=== PATIENT | female | born 1990 | race Caucasian/White ===

== ENCOUNTER 2020-08-07 08:50 | Emergency (ER) | payer OTHER ==
[2020-08-07 09:51] LABS: Urine Blood 1+ (NEG); Urine Glucose NEGATIVE (NEG); Urine Protein NEGATIVE (NEG)
[2020-08-07 09:57] LABS: Urine Bacteria 20-50 /HPF (<20); Urine RBC <5 /HPF (NONE SEEN); Urine Yeast FEW (NONE SEEN)
[2020-08-07 10:03] LABS: Basophils % 0.4 % (0-1.3); Lymphocytes % 15.2 % (15.3-44.8); MPV 7.6 fL (7.6-11.3); RBC Red Blood Cell Count 4.42 M/uL (3.86-4.86)
[2020-08-07 10:22] LABS: Albumin 3.5 g/dL (3.4-5.0); Bilirubin Direct 0.1 mg/dL (0-0.2); Bilirubin Total 0.3 mg/dL (0.2-1.0); Protein, Total 7.1 g/dL (6.4-8.2)
[2020-08-07] MEDS ORDERED: METHYLPREDNISOLONE 125 MG INJ ONE (10:36)
[2020-08-07] MEDS ORDERED: DIPHENHYDRAMINE 50 MG/ML VIAL ONE (10:36)
[2020-08-07] MEDS ORDERED: FAMOTIDINE 20 MG/2 ML VIAL IV ONE (10:37)
--- NOTE | 2020-08-07 11:27 | RAD REPORT ---
EXAM DESCRIPTION: CT - Abdomen Pelvis W Contrast - 08/07/2020 10:45 am CLINICAL HISTORY: Abdominal pain COMPARISON: none. TECHNIQUE: Computed axial tomography of the abdomen pelvis was obtained. 100 cc Isovue-300 was admin istered intravenously. Oral contrast was not requested which limits evaluation of bowel and appendix. All CT scans are performed using dose optimization technique as appropriate and may include automated exposure control or mA/KV adjustment according to patient size. FINDINGS: The liver, spleen, pancreas, adrenal and kidneys appear unremarkable. There is no evidence of diverticulitis. No adnexal mass IMPRESSION: No acute abnormality is displayed.
[2020-08-07 11:30] LABS: SARS-COV-2 RT PCR NEGATIVE (NEGATIVE)
[2020-08-07] MEDS ORDERED: DICYCLOMINE HCL 10 MG CAP ONE (12:24)
--- NOTE | 2020-08-07 12:24 | ER ---
Nurse's Notes [facility] Name: Megan Arias Age: 30 yrs Sex: Female : 1990 Arrival Date: 08/07/2020 Time: 08:53 Bed 14 Private MD: Diagnosis: Unspecified abdominal pain Presentation: 08/07 09:25 Chief complaint: Patient states: mid abd pain and bloating since Tuesday , also having iw chills, fatigue, loss appetite, taste changes, fever last night. Coronavirus screen: At this time, the client does not indicate any symptoms associated with coronavirus-19. Ebola Screen: Patient negative for fever greater than or equal to 101.5 degrees Fahrenheit, and additional compatible Ebola Virus Disease symptoms Patient denies exposure to infectious person. Patient denies travel to an Ebola-affected area in the 21 days before illness onset. No symptoms or risks identified at this time. Initial Sepsis Screen: Does the patient meet any 2 criteria? No. Patient's initial sepsis screen is negative. Does the patient have a suspected source of infection? No. Patient's initial sepsis screen is negative. Risk Assessment: Do you want to hurt yourself or someone else? Patient reports no desire to harm self or others. Onset of symptoms was August 03, 2020. 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 - Social history:: Smoking status: . Screenin: Abuse screen: Denies threats or abuse. Denies injuries from another. Nutritional iw screening: No deficits noted. Tuberculosis screening: No symptoms or risk factors identified. Fall Risk None identified. Assessment: : General: Appears in no apparent distress. Behavior is calm, cooperative. Pain: iw Complains of pain in abdomen. Neuro: Level of Consciousness is awake, alert, obeys commands, Oriented to person, place, time, situation, Moves all extremities. Full function. Cardiovascular: Patient's skin is warm and dry. Respiratory: Respiratory effort is even, unlabored, Respiratory pattern is regular. GI: Bowel sounds present X 4 quads. Abd is soft X 4 quads Reports upper abdominal pain, bloating. Derm: Skin is intact, is healthy with good turgor. Musculoskeletal: Range of motion: intact in all extremities. 10:15 Reassessment: will pre-medicate due to possible allergic reaction, pt has hx of allergy iw to Betadine. Vital Signs: 09:25 BP 119 / 83; Pulse 99; Resp 16; Pulse Ox 98% on R/A; Weight 83.91 kg; Height 5 ft. 4 iw in. (162.56 cm); 09:25 Body Mass Index 31.75 (83.91 kg, 162.56 cm) iw ED Course: 08:53 Patient arrived in ED. ag5 09:15 Han Barrera PA is PHCP. cp 09:15 Adebayo Salter MD is Attending Physician. cp 09:25 Inez Vieyra RN is Primary Nurse. iw 09:27 Triage completed. iw 09:28 Arm band placed on. iw 10:16 Inserted saline lock: 20 gauge in left antecubital area, using aseptic technique. iw 10:46 CT Abd/Pelvis - IV Contrast Only In Process Unspecified. EDMS 13:06 No provider procedures requiring assistance completed. IV discontinued, intact, iw bleeding controlled, No redness/swelling at site. Administered Medications: 10:32 Drug: Pepcid 20 mg Route: IVP; Site: left antecubital; iw 10:32 Drug: SOLU-Medrol 125 mg Route: IVP; Site: left antecubital; iw 10:33 Drug: Benadryl 25 mg Route: IVP; Site: left antecubital; iw 12:21 Drug: Bentyl 20 mg Route: PO; iw Outcome: 12:24 Discharge ordered by . cp 13:07 Patient left the ED. iw Signatures: Dispatcher [employer] EDMS Inez Vieyra RN RN iw Han Barrera PA PA cp Gaskin, Ajare ag5
--- NOTE | 2020-08-07 12:24 | EDPHYS ---
Physician Documentation [facility] Name: Megan Arias Age: 30 yrs Sex: Female : 1990 Arrival Date: 08/07/2020 Time: 08:53 Bed 14 Private MD: ED Physician Adebayo Salter HPI: 08/07 09:40 This 30 yrs old Female presents to ER via Ambulatory with complaints of cp Abdominal Pain, R/O COVID. 09:40 The patient presents with abdominal pain in the periumbilical area. cp 09:40 Onset: The symptoms/episode began/occurred 4 day(s) ago. cp 09:40 The symptoms do not radiate. Associated signs and symptoms: Pertinent positives: cp anorexia, constipation, fever, nausea, Pertinent negatives: diarrhea, dysuria, shortness of breath, vaginal discharge, vomiting. 09:40 The symptoms are described as waxing/waning. 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 - Social history:: Smoking status: . ROS: 09:45 Constitutional: Negative for body aches, chills, fever, poor PO intake. cp 09:45 Eyes: Negative for injury, pain, redness, and discharge. cp 09:45 ENT: Negative for ear pain, sore throat, difficulty swallowing, difficulty handling secretions. 09:45 Cardiovascular: Negative for chest pain, palpitations. 09:45 Respiratory: Negative for cough, shortness of breath, wheezing. 09:45 Abdomen/GI: Positive for abdominal pain, nausea, constipation, of the umbilical area, Negative for vomiting, diarrhea. 09:45 Back: Negative for radiated pain. 09:45 : Negative for urinary symptoms. 09:45 Neuro: Negative for altered mental status, headache, weakness. 09:45 All other systems are negative. Exam: 09:50 Constitutional: The patient appears in no acute distress, alert, awake, non-toxic, well cp developed, well nourished. 09:50 Head/Face: Normocephalic, atraumatic. cp 09:50 Eyes: Periorbital structures: appear normal, Conjunctiva: normal, no exudate, no injection, Sclera: no appreciated abnormality, Lids and lashes: appear normal, bilaterally. 09:50 ENT: External ear(s): are unremarkable, Nose: is normal, Mouth: Lips: moist, Oral mucosa: moist, Posterior pharynx: is normal, airway is patent, no erythema, no exudate. 09:50 Chest/axilla: Inspection: normal, Palpation: is normal, no crepitus, no tenderness. 09:50 Cardiovascular: Rate: normal, Rhythm: regular. 09:50 Respiratory: the patient does not display signs of respiratory distress, Respirations: normal, no use of accessory muscles, no retractions, labored breathing, is not present, Breath sounds: are clear throughout, no decreased breath sounds, no stridor, no wheezing. 09:50 Abdomen/GI: Inspection: abdomen appears normal, Bowel sounds: active, all quadrants, Palpation: soft, in all quadrants, moderate abdominal tenderness, in the umbilical area, rebound tenderness, is not appreciated, involuntary guarding, is not appreciated. 09:50 Back: pain, is absent, ROM is normal. Vital Signs: 09:25 BP 119 / 83; Pulse 99; Resp 16; Pulse Ox 98% on R/A; Weight 83.91 kg; Height 5 ft. 4 iw in. (162.56 cm); 09:25 Body Mass Index 31.75 (83.91 kg, 162.56 cm) iw MDM: 09:35 Patient medically screened. cp 10:00 Differential diagnosis: appendicitis, cholecystitis, Cholelithiasis, gastritis, cp non-specific abd pain, pancreatitis, Ureterolithiasis, urinary tract infection. 12:23 Data reviewed: vital signs, nurses notes, lab test result(s), radiologic studies, CT cp scan. 12:23 Counseling: I had a detailed discussion with the patient and/or guardian regarding: the cp historical points, exam findings, and any diagnostic results supporting the discharge/admit diagnosis, lab results, radiology results, to return to the emergency department if symptoms worsen or persist or if there are any questions or concerns that arise at home. Response to treatment: the patient's symptoms have markedly improved after treatment, VSS. Nausea and abdominal pain improved. Will discharge to home for continued monitoring. 08/07 09:33 Order name: Basic Metabolic Panel 08/07 09:33 Order name: CBC with Diff 08/07 09:33 Order name: Hepatic Function 08/07 09:33 Order name: Lipase 08/07 09:33 Order name: Urine Microscopic Only; Complete Time: 10:09 08/07 09:34 Order name: Basic Metabolic Panel; Complete Time: 11:34 [facility] 08/07 11:34 Interpretation: Normal except: GFR 84. 08/07 09:34 Order name: CBC with Automated Diff; Complete Time: 10:09 [facility] 08/07 09:34 Order name: Liver (Hepatic) Function; Complete Time: 11:34 [facility] 08/07 11:34 Interpretation: Normal except: AST 14; GLOB 3.6; A/G 1.0. 08/07 09:34 Order name: Lipase; Complete Time: 11:34 [facility] 08/07 09:42 Order name: Urine Dipstick--Ancillary (enter results); Complete Time: 10:09 [facility] 08/07 09:42 Order name: Urine --Ancillary (enter results); Complete Time: 10:09 [facility] 08/07 09:58 Order name: Urine Culture [facility] 08/07 09:33 Order name: IV Saline Lock; Complete Time: 10:33 08/07 09:33 Order name: Labs collected and sent; Complete Time: 10:00 08/07 09:33 Order name: Urine Dipstick-Ancillary (obtain specimen); Complete Time: 09:41 08/07 09:33 Order name: Urine Test (obtain specimen); Complete Time: 09:41 08/07 09:33 Order name: CT Abd/Pelvis - IV Contrast Only; Complete Time: 11:34 08/07 11:34 Interpretation: Report reviewed. 08/07 11:30 Order name: COVID-19/FLU A+B; Complete Time: 11:34 [facility] 08/07 11:35 Order name: PO challenge; Complete Time: 12:05 cp Administered Medications: 10:32 Drug: Pepcid 20 mg Route: IVP; Site: left antecubital; iw 10:32 Drug: SOLU-Medrol 125 mg Route: IVP; Site: left antecubital; iw 10:33 Drug: Benadryl 25 mg Route: IVP; Site: left antecubital; iw 12:21 Drug: Bentyl 20 mg Route: PO; Disposition: 08/07/20 12:24 Discharged to Home. Impression: Unspecified abdominal pain. - Condition is Stable. - Discharge Instructions: Abdominal Pain, Adult. - Prescriptions for Bentyl 20 mg Oral Tablet - take 1 tablet by ORAL route every 6 hours As needed; 20 tablet. Zofran 4 mg Oral Tablet - take 1 tablet by ORAL route every 12 hours As needed; 20 tablet. - Work release form, Medication Reconciliation Form, Thank You Letter, Antibiotic Education, Prescription Opioid Use form. - Follow up: Private Physician; When: 1 - 2 days; Reason: Recheck today's complaints. - Problem is new. - Symptoms have improved. Addendum: 08/10/2020 19:57 Co-signature as Attending Physician, Adebayo Salter MD I agree with the assessment and k dr plan of care. Signatures: Dispatcher [employer] EDMT Adebayo Salter MD MD kdr Inez Vieyra RN RN iw Han Barrera PA PA cp Corrections: (The following items were deleted from the chart) 08/07 10: 09:34 CORONAVIRUS+MR.LAB.BRZ ordered. EDMT EDMS 10: 09:34 Influenza Screen (A \T\ B)+BA.LAB.BRZ ordered. EDMT EDMS 13:07 12:24 08/07/2020 12:24 Discharged to Home. Impression: Unspecified abdominal pain. iw Condition is Stable. Forms are Medication Reconciliation Form, Thank You Letter, Antibiotic Education, Prescription Opioid Use. Follow up: Private Physician; When: 1 - 2 days; Reason: Recheck today's complaints. Problem is new. Symptoms have improved. cp
== END 2020-08-07 13:07 | disposition home or self-care (01) ==
LOC: ER 08:50
DX: R10.33 Periumbilical pain (principal); Z20.822 Contact with and (suspected) exposure to COVID-19; E03.9 Hypothyroidism, unspecified
CPT/HCPCS: 87088; 85025; 87086; 80048; 36415; 81025; 82565; 80076; 83690; 0240U; 74177; 96375; 96374; 99283; Q9967; J1200; J2930; 81003; 81015